=== PATIENT | male | born 1945 | race Caucasian/White ===

== ENCOUNTER 2021-09-16 12:41 | Inpatient (IN) | payer MEDICAID, OTHER ==
[~2021-09-16] VITALS: Ht 188 cm; Wt 95.3 kg
[~2021-09-16 12:41] MED LIST: DULO20CA27 PO; DULO60CA98 PO; MULT1TAB70 PO; TAMS-13 PO; TRIH5TAB3 PO; TRIL8 PO
[2021-09-16 14:24] LABS: BASOPHILS % (AUTO) 0.5 % (0.0-2.0); EOSINOPHILS % (AUTO) 1.4 % (1.0-6.0); HEMATOCRIT 45.6 % (41-53); HEMOGLOBIN 15.3 g/dL (13.5-17.5); LYMPHOCYTES # (AUTO) 0.7 K/uL (1.0-4.8); LYMPHOCYTES % (AUTO) 6.9 % (22.0-44.0); MEAN CORPUSCULAR HEMOGLOBIN 29.2 pg (26.0-34.0); MEAN CORPUSCULAR HGB CONC 33.6 G/dL (31.0-37.0); MEAN CORPUSCULAR VOLUME 87 fL (80-100); MONOCYTES # (AUTO) 0.7 K/uL (0.1-1.0); NEUTROPHILS # (AUTO) 8.3 K/uL (1.8-7.7); NEUTROPHILS % (AUTO) 84.2 % (40.0-70.0); PLATELET COUNT (AUTO) 157 K/uL (150-450); RED BLOOD CELL COUNT(AUTO) 5.24 MIL/uL (4.50-5.90); RED CELL DISTRIBUTION WIDTH 14.3 % (11.5-14.5)
[2021-09-16 14:32] LABS: ANION GAP 3 mmol/L (8-16); CALCIUM, TOTAL 9.6 mg/dL (8.8-10.5); CARBON DIOXIDE 36 mmol/L (22-29); CHLORIDE 106 mmol/L (98-107); CREATININE 0.86 mg/dL (0.60-1.30); GLOMERULAR FILTR. RATE CALC > 60 mL/min (>60); GLUCOSE,RANDOM 106 mg/dL (70-110); POTASSIUM 4.5 mmol/L (3.5-5.1); SODIUM SERUM 145 mmol/L (136-145); UREA NITROGEN, BLOOD 11 mg/dL (7-18)
[2021-09-16 14:38] LABS: ALANINE AMINOTRANSFERASE 14 U/L (12-78); ALBUMIN 4.1 g/dL (3.4-5.0); ALKALINE PHOSPHATASE 90 U/L (46-116); ASPARTATE AMINOTRANSFERASE 13 U/L (15-37); BILIRUBIN,TOTAL 0.4 mg/dL (0.1-1.0); TOTAL PROTEIN, SERUM 7.1 g/dL (6.4-8.2)
[2021-09-16] MEDS ORDERED: FAMO20 PO (14:41)
[2021-09-16] MEDS ORDERED: SERT-158 PO (14:41)
[2021-09-16] MEDS ORDERED: QUET100T PO (14:41)
[2021-09-16] MEDS ORDERED: ATOR40TA28 PO (14:41)
[2021-09-16] MEDS ORDERED: CETI-450 PO (14:41)
[2021-09-16] MEDS ORDERED: HYDR25TA84 PO ×2 (14:41)
[2021-09-16] MEDS ORDERED: BENZ1TAB10 PO (14:41)
[2021-09-16] MEDS ORDERED: CLOP75TA60 PO (14:41)
[2021-09-16] MEDS ORDERED: GABA-1181 PO (14:41)
[2021-09-16] MEDS ORDERED: AMLO-258 PO (14:41)
[2021-09-16] MEDS ORDERED: HALO10 PO (14:41)
[2021-09-16 15:58] LABS: FREE T4 (FREE THYROXINE) 1.16 ng/dL (0.76-1.46); THYROID STIMULATING HORMONE 0.86 uIU/mL (0.36-3.74)
[2021-09-16 16:36] LABS: COVID AG,FIA SOURCE NASOPHARYNGEAL
[2021-09-16 16:44] LABS: APPEARANCE,URINE CLEAR (CLEAR); BILIRUBIN,URINE NEGATIVE (NEGATIVE); GLUCOSE, URINE (UA) NEGATIVE (NEGATIVE); KETONES,URINE NEGATIVE (NEGATIVE); LEUKOCYTE ESTERASE ,URINE NEGATIVE (NEGATIVE); NITRATE,URINE NEGATIVE (NEGATIVE); OCCULT BLOOD,URINE NEGATIVE (NEGATIVE); PH,URINE 6.5 (5.0-8.0); PROTEIN,URINE NEGATIVE (NEGATIVE); UROBILINOGEN,URINE 0.2 mg/dL (<=1.0)
[2021-09-16] MEDS ORDERED: CloNIDine HCL 0.1 MG TABLET PO PRN (21:30)
[2021-09-16] MEDS ORDERED: ACETAMINOPHEN 325 MG TABLET PO PRN (21:30)
[2021-09-16] MEDS ORDERED: GuaiFENesin/D-METHORPHAN [SUGAR-FREE] 200-20MG/10 ML SYRUP UDCUP PO PRN (21:30)
[2021-09-16] MEDS ORDERED: ALBUTEROL SULFATE HFA 90 MCG/PUFF 8 GM INHALER IH PRN (21:30)
[2021-09-16] MEDS ORDERED: IBUPROFEN 400 MG TABLET PO PRN (21:30)
[2021-09-16] MEDS ORDERED: MAG HYDROX/AL HYDROX/SIMETH ES 30 ML SUSPENSION UDCUP PO PRN (21:30)
[2021-09-16] MEDS ORDERED: MAGNESIUM HYDROXIDE SUSPENSION 30 ML UDCUP PO PRN (21:30)
[2021-09-16] MEDS ORDERED: ONDANSETRON HCL 4 MG TABLET PO PRN (21:30)
[2021-09-16] MEDS ORDERED: PETROLATUM,WHITE 28 GM JELLY TP PRN (21:30)
[2021-09-16] MEDS ORDERED: NICOTINE 14 MG/24 HOUR PATCH TD PRN (21:30)
[2021-09-16] MEDS ORDERED: DOCUSATE SODIUM 100 MG CAPSULE PO PRN (21:30)
[2021-09-16] MEDS ORDERED: LOPERAMIDE HCL 2 MG CAPSULE PO PRN (21:30)
[2021-09-17] MEDS ORDERED: ACETAMINOPHEN 325 MG TABLET PO PRN (07:00)
[2021-09-17] MEDS ORDERED: ALBUTEROL SULFATE HFA 90 MCG/PUFF 8 GM INHALER IH PRN (07:00)
[2021-09-17] MEDS ORDERED: ONDANSETRON HCL 4 MG TABLET PO PRN (07:00)
[2021-09-17] MEDS ORDERED: NICOTINE 14 MG/24 HOUR PATCH TD PRN (07:00)
[2021-09-17] MEDS ORDERED: IBUPROFEN 400 MG TABLET PO PRN (07:00)
[2021-09-17] MEDS ORDERED: DOCUSATE SODIUM 100 MG CAPSULE PO PRN (07:00)
[2021-09-17] MEDS ORDERED: PETROLATUM,WHITE 28 GM JELLY TP PRN (07:00)
[2021-09-17] MEDS ORDERED: MAGNESIUM HYDROXIDE SUSPENSION 30 ML UDCUP PO PRN (07:00)
[2021-09-17] MEDS ORDERED: CloNIDine HCL 0.1 MG TABLET PO PRN (07:00)
[2021-09-17] MEDS ORDERED: LOPERAMIDE HCL 2 MG CAPSULE PO PRN (07:00)
[2021-09-17] MEDS ORDERED: MAG HYDROX/AL HYDROX/SIMETH ES 30 ML SUSPENSION UDCUP PO PRN (07:00)
[2021-09-17 07:21] LABS: HEMOGLOBIN A1C 5.6 % (3.8-5.6)
[2021-09-17 07:24] LABS: CHOL/HDL RATIO 2.7 (4.2-7.3)
[2021-09-17 07:44] LABS: THYROID STIMULATING HORMONE 0.64 uIU/mL (0.36-3.74)
[2021-09-17] MEDS ORDERED: LORazepam 2 MG TABLET PO PRN (08:00)
[2021-09-17] MEDS ORDERED: HALOPERIDOL 5 MG TABLET PO PRN (08:00)
[2021-09-17] MEDS ORDERED: ZOLPIDEM TARTRATE 10 MG TABLET PO PRN (08:00)
[2021-09-17] MEDS ORDERED: AmLODIPine BESYLATE 10 MG TABLET PO SCH (09:00)
[2021-09-17] MEDS: AmLODIPine BESYLATE 10 MG TABLET PO SCH (09:10)
[2021-09-17] MEDS: TAMSULOSIN HCL 0.4 MG CAPSULE PO SCH (09:10)
[2021-09-17] MEDS: CLOPIDOGREL BISULFATE 75 MG TABLET PO SCH (09:11)
[2021-09-17] MEDS: CETIRIZINE HCL 10 MG TABLET PO SCH (09:11)
[2021-09-17 09:49] VITALS: BP 101/60
[2021-09-17 11:03] VITALS: BP 101/60
[2021-09-17] MEDS ORDERED: MULT-660 PO (11:34)
[2021-09-17] MEDS: GABAPENTIN 300 MG CAPSULE PO SCH ×2 (13:21→16:38)
[2021-09-17] MEDS: TRIHEXYPHENIDYL HCL 5 MG TABLET PO SCH ×2 (13:22→16:38)
[2021-09-17 13:25] VITALS: BP 112/64
[2021-09-17 16:33] VITALS: BP 167/89
[2021-09-17] MEDS: HALOPERIDOL 10 MG TABLET PO SCH (20:24)
[2021-09-17] MEDS: QUEtiapine FUMARATE 100 MG TABLET PO SCH (20:24)
[2021-09-17] MEDS: ATORVASTATIN CALCIUM 40 MG TABLET PO SCH (20:24)
[2021-09-18] MEDS: TAMSULOSIN HCL 0.4 MG CAPSULE PO SCH (08:16)
[2021-09-18] MEDS: DULoxetine HCL 60 MG CAPSULE PO SCH (08:16)
[2021-09-18] MEDS: TRIHEXYPHENIDYL HCL 5 MG TABLET PO SCH ×3 (08:16→16:31)
[2021-09-18] MEDS: CETIRIZINE HCL 10 MG TABLET PO SCH (08:16)
[2021-09-18] MEDS: CLOPIDOGREL BISULFATE 75 MG TABLET PO SCH (08:16)
[2021-09-18] MEDS: AmLODIPine BESYLATE 10 MG TABLET PO SCH (08:16)
[2021-09-18] MEDS: GABAPENTIN 300 MG CAPSULE PO SCH ×3 (08:16→16:31)
[2021-09-18 09:37] VITALS: BP 108/60
[2021-09-18 16:07] VITALS: BP 106/64
[2021-09-18] MEDS: HALOPERIDOL 10 MG TABLET PO SCH (20:31)
[2021-09-18] MEDS: QUEtiapine FUMARATE 100 MG TABLET PO SCH (20:31)
[2021-09-18] MEDS: ATORVASTATIN CALCIUM 40 MG TABLET PO SCH (20:31)
[2021-09-19 08:25] LABS: CHOL/HDL RATIO 2.6 (4.2-7.3)
[2021-09-19] MEDS: CETIRIZINE HCL 10 MG TABLET PO SCH (09:01)
[2021-09-19] MEDS: GABAPENTIN 300 MG CAPSULE PO SCH ×3 (09:01→16:53)
[2021-09-19] MEDS: TAMSULOSIN HCL 0.4 MG CAPSULE PO SCH (09:01)
[2021-09-19] MEDS: CLOPIDOGREL BISULFATE 75 MG TABLET PO SCH (09:01)
[2021-09-19] MEDS: AmLODIPine BESYLATE 10 MG TABLET PO SCH (09:01)
[2021-09-19] MEDS: TRIHEXYPHENIDYL HCL 5 MG TABLET PO SCH ×3 (09:01→16:53)
[2021-09-19] MEDS: DULoxetine HCL 60 MG CAPSULE PO SCH (09:01)
[2021-09-19] MEDS: GuaiFENesin/D-METHORPHAN [SUGAR-FREE] 200-20MG/10 ML SYRUP UDCUP PO PRN (12:17)
[2021-09-19 16:29] VITALS: BP 134/62
[2021-09-19] MEDS: HALOPERIDOL 10 MG TABLET PO SCH (20:48)
[2021-09-19] MEDS: QUEtiapine FUMARATE 100 MG TABLET PO SCH (20:48)
[2021-09-19] MEDS: ATORVASTATIN CALCIUM 40 MG TABLET PO SCH (20:49)
[2021-09-20 08:52] VITALS: BP 125/54
[2021-09-20] MEDS: TRIHEXYPHENIDYL HCL 5 MG TABLET PO SCH ×3 (09:05→16:05)
[2021-09-20] MEDS: CETIRIZINE HCL 10 MG TABLET PO SCH (09:05)
[2021-09-20] MEDS: CLOPIDOGREL BISULFATE 75 MG TABLET PO SCH (09:05)
[2021-09-20] MEDS: TAMSULOSIN HCL 0.4 MG CAPSULE PO SCH (09:06)
[2021-09-20] MEDS: GABAPENTIN 300 MG CAPSULE PO SCH ×3 (09:06→16:05)
[2021-09-20] MEDS: AmLODIPine BESYLATE 10 MG TABLET PO SCH (09:06)
[2021-09-20] MEDS: DULoxetine HCL 60 MG CAPSULE PO SCH (09:06)
[2021-09-20] MEDS: GuaiFENesin/D-METHORPHAN [SUGAR-FREE] 200-20MG/10 ML SYRUP UDCUP PO PRN (10:21)
[2021-09-20 16:16] VITALS: BP 124/63
[2021-09-20] MEDS: HALOPERIDOL 10 MG TABLET PO SCH (20:29)
[2021-09-20] MEDS: QUEtiapine FUMARATE 100 MG TABLET PO SCH (20:30)
[2021-09-20] MEDS: ATORVASTATIN CALCIUM 40 MG TABLET PO SCH (20:30)
[2021-09-21 08:43] VITALS: BP 117/60
[2021-09-21] MEDS: DULoxetine HCL 60 MG CAPSULE PO SCH (08:45)
[2021-09-21] MEDS: AmLODIPine BESYLATE 10 MG TABLET PO SCH (08:45)
[2021-09-21] MEDS: TAMSULOSIN HCL 0.4 MG CAPSULE PO SCH (08:45)
[2021-09-21] MEDS: TRIHEXYPHENIDYL HCL 5 MG TABLET PO SCH ×3 (08:45→16:09)
[2021-09-21] MEDS: CETIRIZINE HCL 10 MG TABLET PO SCH (08:45)
[2021-09-21] MEDS: CLOPIDOGREL BISULFATE 75 MG TABLET PO SCH (08:46)
[2021-09-21] MEDS: GABAPENTIN 300 MG CAPSULE PO SCH ×3 (08:46→16:09)
[2021-09-21 16:18] VITALS: BP 121/71
[2021-09-21] MEDS: HALOPERIDOL 10 MG TABLET PO SCH (21:05)
[2021-09-21] MEDS: QUEtiapine FUMARATE 100 MG TABLET PO SCH (21:05)
[2021-09-21] MEDS: ATORVASTATIN CALCIUM 40 MG TABLET PO SCH (21:06)
[2021-09-22 08:00] VITALS: BP 119/64
[2021-09-22] MEDS: AmLODIPine BESYLATE 10 MG TABLET PO SCH (09:00)
[2021-09-22] MEDS: TAMSULOSIN HCL 0.4 MG CAPSULE PO SCH (09:00)
[2021-09-22] MEDS: TRIHEXYPHENIDYL HCL 5 MG TABLET PO SCH ×3 (09:00→16:20)
[2021-09-22] MEDS: DULoxetine HCL 60 MG CAPSULE PO SCH (09:00)
[2021-09-22] MEDS: CETIRIZINE HCL 10 MG TABLET PO SCH (09:00)
[2021-09-22] MEDS: CLOPIDOGREL BISULFATE 75 MG TABLET PO SCH (09:00)
[2021-09-22] MEDS: GABAPENTIN 300 MG CAPSULE PO SCH ×3 (09:00→16:20)
[2021-09-22] MEDS: GuaiFENesin/D-METHORPHAN [SUGAR-FREE] 200-20MG/10 ML SYRUP UDCUP PO PRN (14:32)
[2021-09-22 16:00] VITALS: BP 113/64
[2021-09-22] MEDS: QUEtiapine FUMARATE 100 MG TABLET PO SCH (20:41)
[2021-09-22] MEDS: HALOPERIDOL 10 MG TABLET PO SCH (20:41)
[2021-09-22] MEDS: ATORVASTATIN CALCIUM 40 MG TABLET PO SCH (20:41)
[2021-09-23 08:40] VITALS: BP 111/69
[2021-09-23] MEDS: TAMSULOSIN HCL 0.4 MG CAPSULE PO SCH (09:31)
[2021-09-23] MEDS: CETIRIZINE HCL 10 MG TABLET PO SCH (09:32)
[2021-09-23] MEDS: TRIHEXYPHENIDYL HCL 5 MG TABLET PO SCH ×3 (09:32→16:53)
[2021-09-23] MEDS: GABAPENTIN 300 MG CAPSULE PO SCH ×3 (09:32→16:52)
[2021-09-23] MEDS: AmLODIPine BESYLATE 10 MG TABLET PO SCH (09:32)
[2021-09-23] MEDS: CLOPIDOGREL BISULFATE 75 MG TABLET PO SCH (09:32)
[2021-09-23] MEDS: DULoxetine HCL 60 MG CAPSULE PO SCH (09:32)
[2021-09-23] MEDS: GuaiFENesin/D-METHORPHAN [SUGAR-FREE] 200-20MG/10 ML SYRUP UDCUP PO PRN (09:33)
[2021-09-23 16:32] VITALS: BP 107/60
[2021-09-23] MEDS: QUEtiapine FUMARATE 100 MG TABLET PO SCH (20:41)
[2021-09-23] MEDS: ATORVASTATIN CALCIUM 40 MG TABLET PO SCH (20:41)
[2021-09-23] MEDS: HALOPERIDOL 10 MG TABLET PO SCH (20:42)
[2021-09-23 21:53] LABS: COVID AG,FIA SOURCE NASAL SWAB
[2021-09-24] MEDS: TRIHEXYPHENIDYL HCL 5 MG TABLET PO SCH ×3 (08:38→16:32)
[2021-09-24] MEDS: TAMSULOSIN HCL 0.4 MG CAPSULE PO SCH (08:38)
[2021-09-24] MEDS: CLOPIDOGREL BISULFATE 75 MG TABLET PO SCH (08:38)
[2021-09-24] MEDS: DULoxetine HCL 60 MG CAPSULE PO SCH (08:38)
[2021-09-24] MEDS: GABAPENTIN 300 MG CAPSULE PO SCH ×3 (08:38→16:32)
[2021-09-24] MEDS: CETIRIZINE HCL 10 MG TABLET PO SCH (08:38)
[2021-09-24] MEDS: AmLODIPine BESYLATE 10 MG TABLET PO SCH (08:38)
[2021-09-24 09:00] VITALS: BP 122/58
[2021-09-24 16:00] VITALS: BP 127/59
[2021-09-24] MEDS: ATORVASTATIN CALCIUM 40 MG TABLET PO SCH (20:31)
[2021-09-24] MEDS: QUEtiapine FUMARATE 100 MG TABLET PO SCH (20:32)
[2021-09-24] MEDS: HALOPERIDOL 10 MG TABLET PO SCH (20:32)
[2021-09-25] MEDS: DULoxetine HCL 60 MG CAPSULE PO SCH (08:37)
[2021-09-25] MEDS: TAMSULOSIN HCL 0.4 MG CAPSULE PO SCH (08:37)
[2021-09-25] MEDS: CLOPIDOGREL BISULFATE 75 MG TABLET PO SCH (08:37)
[2021-09-25] MEDS: CETIRIZINE HCL 10 MG TABLET PO SCH (08:37)
[2021-09-25] MEDS: AmLODIPine BESYLATE 10 MG TABLET PO SCH (08:37)
[2021-09-25] MEDS: GABAPENTIN 300 MG CAPSULE PO SCH ×3 (08:37→16:05)
[2021-09-25] MEDS: TRIHEXYPHENIDYL HCL 5 MG TABLET PO SCH ×3 (08:37→16:04)
[2021-09-25 09:32] VITALS: BP 140/75
[2021-09-25 16:00] VITALS: BP 129/72
[2021-09-25 16:45] VITALS: BP 138/73
[2021-09-25] MEDS: ATORVASTATIN CALCIUM 40 MG TABLET PO SCH (20:20)
[2021-09-25] MEDS: QUEtiapine FUMARATE 100 MG TABLET PO SCH (20:20)
[2021-09-25] MEDS: HALOPERIDOL 10 MG TABLET PO SCH (20:20)
[2021-09-26] MEDS: DULoxetine HCL 60 MG CAPSULE PO SCH (09:13)
[2021-09-26] MEDS: TAMSULOSIN HCL 0.4 MG CAPSULE PO SCH (09:13)
[2021-09-26] MEDS: GABAPENTIN 300 MG CAPSULE PO SCH ×3 (09:13→17:00)
[2021-09-26] MEDS: CETIRIZINE HCL 10 MG TABLET PO SCH (09:13)
[2021-09-26] MEDS: TRIHEXYPHENIDYL HCL 5 MG TABLET PO SCH ×3 (09:14→17:01)
[2021-09-26] MEDS: CLOPIDOGREL BISULFATE 75 MG TABLET PO SCH (09:14)
[2021-09-26] MEDS: AmLODIPine BESYLATE 10 MG TABLET PO SCH ×2 (09:14→12:02)
[2021-09-26 09:19] VITALS: BP 99/64
[2021-09-26 16:17] VITALS: BP 129/75
[2021-09-26] MEDS: ATORVASTATIN CALCIUM 40 MG TABLET PO SCH (20:24)
[2021-09-26] MEDS: HALOPERIDOL 10 MG TABLET PO SCH (20:24)
[2021-09-26] MEDS: QUEtiapine FUMARATE 100 MG TABLET PO SCH (20:25)
[2021-09-27 09:01] VITALS: BP 115/67
[2021-09-27] MEDS: TAMSULOSIN HCL 0.4 MG CAPSULE PO SCH (09:23)
[2021-09-27] MEDS: DULoxetine HCL 60 MG CAPSULE PO SCH (09:23)
[2021-09-27] MEDS: AmLODIPine BESYLATE 10 MG TABLET PO SCH (09:23)
[2021-09-27] MEDS: CETIRIZINE HCL 10 MG TABLET PO SCH (09:24)
[2021-09-27] MEDS: GABAPENTIN 300 MG CAPSULE PO SCH ×3 (09:24→16:08)
[2021-09-27] MEDS: CLOPIDOGREL BISULFATE 75 MG TABLET PO SCH (09:24)
[2021-09-27] MEDS: TRIHEXYPHENIDYL HCL 5 MG TABLET PO SCH ×3 (09:24→16:08)
[2021-09-27 16:00] VITALS: BP 120/68
[2021-09-27] MEDS: GuaiFENesin/D-METHORPHAN [SUGAR-FREE] 200-20MG/10 ML SYRUP UDCUP PO PRN (17:52)
[2021-09-27] MEDS: QUEtiapine FUMARATE 100 MG TABLET PO SCH (20:14)
[2021-09-27] MEDS: ATORVASTATIN CALCIUM 40 MG TABLET PO SCH (20:15)
[2021-09-27] MEDS: HALOPERIDOL 10 MG TABLET PO SCH (20:15)
[2021-09-28 08:32] VITALS: BP 147/79
[2021-09-28] MEDS: AmLODIPine BESYLATE 10 MG TABLET PO SCH (09:41)
[2021-09-28] MEDS: GABAPENTIN 300 MG CAPSULE PO SCH ×3 (09:41→16:03)
[2021-09-28] MEDS: CETIRIZINE HCL 10 MG TABLET PO SCH (09:41)
[2021-09-28] MEDS: TAMSULOSIN HCL 0.4 MG CAPSULE PO SCH (09:41)
[2021-09-28] MEDS: DULoxetine HCL 60 MG CAPSULE PO SCH (09:41)
[2021-09-28] MEDS: CLOPIDOGREL BISULFATE 75 MG TABLET PO SCH (09:41)
[2021-09-28] MEDS: TRIHEXYPHENIDYL HCL 5 MG TABLET PO SCH ×3 (09:41→16:03)
[2021-09-28 16:00] VITALS: BP 100/63
[2021-09-28] MEDS: ATORVASTATIN CALCIUM 40 MG TABLET PO SCH (20:08)
[2021-09-28] MEDS: HALOPERIDOL 10 MG TABLET PO SCH (20:08)
[2021-09-28] MEDS: QUEtiapine FUMARATE 100 MG TABLET PO SCH (20:08)
[2021-09-29 08:41] VITALS: BP 141/92
[2021-09-29] MEDS: CLOPIDOGREL BISULFATE 75 MG TABLET PO SCH (08:55)
[2021-09-29] MEDS: TRIHEXYPHENIDYL HCL 5 MG TABLET PO SCH ×3 (08:55→16:33)
[2021-09-29] MEDS: GABAPENTIN 300 MG CAPSULE PO SCH ×3 (08:55→16:33)
[2021-09-29] MEDS: TAMSULOSIN HCL 0.4 MG CAPSULE PO SCH (08:55)
[2021-09-29] MEDS: AmLODIPine BESYLATE 10 MG TABLET PO SCH (08:55)
[2021-09-29] MEDS: DULoxetine HCL 60 MG CAPSULE PO SCH (08:55)
[2021-09-29] MEDS: CETIRIZINE HCL 10 MG TABLET PO SCH (08:55)
[2021-09-29] MEDS ORDERED: PALIPERIDONE PALMITATE 156 MG/ML SYRINGE IM SCH (09:00)
[2021-09-29 16:22] VITALS: BP 131/79
[2021-09-29] MEDS: QUEtiapine FUMARATE 100 MG TABLET PO SCH (20:31)
[2021-09-29] MEDS: ATORVASTATIN CALCIUM 40 MG TABLET PO SCH (20:31)
[2021-09-29] MEDS: HALOPERIDOL 10 MG TABLET PO SCH (20:31)
[2021-09-30 08:12] VITALS: BP 122/60
[2021-09-30] MEDS: TAMSULOSIN HCL 0.4 MG CAPSULE PO SCH (08:44)
[2021-09-30] MEDS: TRIHEXYPHENIDYL HCL 5 MG TABLET PO SCH ×2 (08:44→12:39)
[2021-09-30] MEDS: CETIRIZINE HCL 10 MG TABLET PO SCH (08:44)
[2021-09-30] MEDS: DULoxetine HCL 60 MG CAPSULE PO SCH (08:45)
[2021-09-30] MEDS: AmLODIPine BESYLATE 10 MG TABLET PO SCH (08:45)
[2021-09-30] MEDS: GABAPENTIN 300 MG CAPSULE PO SCH ×2 (08:45→12:39)
[2021-09-30] MEDS: CLOPIDOGREL BISULFATE 75 MG TABLET PO SCH (08:45)
[2021-09-30 09:15] LABS: COVID AG,FIA SOURCE NASOPHARYNGEAL
[2021-09-30] MEDS ORDERED: DULO60CA98 PO (12:17)
[2021-09-30] MEDS ORDERED: PALI156D IM (12:17)
== END 2021-09-30 15:45 | disposition home or self-care (01) | DRG 750 ==
LOC: EMS 12:41 → 3EI 18:14
PROVIDERS: ADMIT Psychiatry & Neurology Child & Adolescent Psychiatry; ATTEND Psychiatry & Neurology Child & Adolescent Psychiatry
DX: F20.0 Paranoid schizophrenia (principal); Z59.00 Homelessness unspecified; E78.5 Hyperlipidemia, unspecified; F17.200 Nicotine dependence, unspecified, uncomplicated; I10 Essential (primary) hypertension; J30.9 Allergic rhinitis, unspecified; F41.9 Anxiety disorder, unspecified; N40.0 Benign prostatic hyperplasia without lower urinary tract symptoms; Z88.8 Allergy status to other drugs, medicaments and biological substances; Z79.899 Other long term (current) drug therapy; Z20.822 Contact with and (suspected) exposure to COVID-19
CPT/HCPCS: 80053; 80061; 81003; 83036; 84439; 84443; 85025; 99285; G0480; J3535